=== PATIENT | female | born 1975 | race Two or more races ===

== ENCOUNTER 2018-03-31 08:24 | Emergency (ER) | payer BC ==
[2018-03-31] MEDS ORDERED: ACETAMINOPHEN 500 MG TAB PO ONE (08:49)
--- NOTE | 2018-03-31 08:52 | EDPHY ---
H & P Stated Complaint: L arm numbness and no movement for 30 seconds at 0550 today Time Seen by Provider: 03/31/18 08:27 HPI/ROS: CHIEF COMPLAINT: Left arm weakness History by patient HISTORY OF PRESENT ILLNESS: 42-year-old woman with a history of migraines presents complaining of acute onset of left arm weakness while folding laundry this morning. Patient states she was trying to lift something up and suddenly her left arm was limp. She was afraid and tried to scream but found she could not speak. The symptoms lasted less than a minute. She then began having we the jelly lines in her left eye which is her typical migraine aura. She denies any difficulty with her vision or double vision. She denies any leg weakness. She denies any nausea or vomiting. She went and laid down and did not develop a headache. She did not take anything. She was able to shower but got worried about a stroke and decided to come in to be seen. She normally takes ibuprofen for her migraines. She has been having migraines with aura since she was 17 years old but has never had any neurologic symptoms with them before. She does not smoke. 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 REVIEW OF SYSTEMS: As in HPI, and all other systems reviewed and are negative Source: Patient - Personal History LMP (Females 10-55): 1-7 Days Ago Current Tetanus Diphtheria and Acellular Pertussis (TDAP): Yes Tetanus Vaccine Date: within 10 years - Medical/Surgical History Hx Asthma: No Hx Chronic Respiratory Disease: No Hx Diabetes: No Hx Cardiac Disease: No Hx Renal Disease: No Hx Cirrhosis: No Hx Alcoholism: No Hx HIV/AIDS: No Hx Splenectomy or Spleen Trauma: No Other PMH: Migraines, uterine fibroids, high cholesterol - Social History Smoking Status: Never smoked - Physical Exam Exam: General Appearance: Alert, comfortable, well appearing, fluent speech. Head: normocephalic, atraumatic Eyes: Pupils equal and round, reactive to light, no pallor or injection. Extraocular movements intact. Mouth: Mucous membranes moist. Respiratory: Normal, effort, lungs are clear to auscultation. No wheezes, rales or rhonchi. Cardiovascular: Regular rate and rhythm. S1, S2, no murmurs, gallops or rubs appreciated Gastrointestinal: Abdomen is soft and nontender, no masses, bowel sounds normal. Back: No CVA tenderness, no bony tenderness Neurological: Awake, alert and oriented x 3, cranial nerves 2 through 12 intact , no pronator drift, normal gait, heel to hatch intact, [id number] intact, DTRs 2+ and equal bilaterally, sensation equal bilaterally Skin: Warm and dry, no rashes. Musculoskeletal: No deformities or tenderness. Extremities: full range of motion, no edema, DP2+ bilat Psychiatric: Patient has normal affect, there is no agitation. Constitutional: Initial Vital Signs Temperature (C) 36.7 C 03/31/18 08:28 Heart Rate 67 03/31/18 08:28 Respiratory Rate 16 03/31/18 08:28 Blood Pressure 141/89 H 03/31/18 08:28 O2 Sat (%) 96 03/31/18 08:28 O2 Delivery Mode Room Air Allergies/Adverse Reactions: hydrocortisone Allergy (Verified 03/31/18 08:30) Pt reports Swelling/neck,face,throat Penicillins Allergy (Verified 03/31/18 08:30) Pt reports Swelling/neck,face,throat Home Medications: Medication Instructions Recorded Bc Pill 03/31/18 Multivitamin 03/31/18 Medical Decision Making - Diagnostics EKG Interpretation: Normal sinus rhythm at a rate of 63 with normal axis, normal intervals and no ST segment abnormalities or arrhythmia. Impression: Unremarkable EKG. Imaging Results: Imaging Impressions Head CT 03/31/18 08:36 Impression: No acute intracranial findings. If symptoms persist and clinical suspicion warrants, consider MRI. Findings discussed with Lory Berry MD 03/31/2018 at 9:18. ED Course/Re-evaluation: 42-year-old woman with history of migraine headaches with aura presents with transient left arm weakness and difficulty speaking followed by migraine aura but without headache. Exam here is normal. ECG shows no evidence of arrhythmia. CBCs within normal limits. Electrolytes within normal limits except for low potassium however this is rechecked and found to be within normal limits. Head CT is read as nothing acute by the radiologist. Because the patient had left arm and speech affected this suggest both sides of her brain were involved in this is more likely to be migraine and then a TIA, in addition was accompanied by her typical aura.. There is no evidence of stroke as the patient's symptoms have all resolved. I discussed this with the patient and gave her reassurance. I am recommending close follow-up with her primary care physician and/or Neurology. - Data Points Laboratory Results: 03/31/18 03/31/18 09:34 08:51 POC Hgb 14.6 gm/dL gm/dL (12.6-16.3) POC Hct 43 % % (38-47) POC Sodium 143 mEq/L mEq/L 143 mEq/L mEq/L (135-145) (135-145) POC Potassium 3.6 mEq/L mEq/L 3.0 mEq/L L mEq/L (3.3-5.0) (3.3-5.0) POC Chloride 102 mEq/L mEq/L 103.0 mEq/L mEq/L (97-110) (97-110) POC Total CO2 26 mEq/L mEq/L (22-31) POC BUN 13 mg/dL mg/dL 12 mg/dL mg/dL (7-23) (7-23) POC Creatinine 0.7 mg/dL mg/dL 0.8 mg/dL mg/dL (0.6-1.0) (0.6-1.0) POC Glucose 83 mg/dL mg/dL 87 mg/dL mg/dL (70-100) (70-100) POC Calcium 9.0 mg/dL mg/dL (8.5-10.4) Medications Given: Discontinued Medications Acetaminophen (Tylenol) 1,000 mg PO EDNOW ONE Stop: 03/31/18 08:50 Last Admin: 03/31/18 08:56 Dose: 1,000 mg Point of Care Test Results: CBC CBC Collection Date 03/31/18 CBC Collection Time 08:40 WBC 6.0 RBC 4.40 HGB 14.0 HCT 40.1 PLT 258 Neut # 3.8 Neut 64.3 LYMPH # 1.7 LYMPH 27.5 Other WBC # 0.5 Other WBC 8.2 MCV 91.1 Chemistry 03/31/18 03/31/18 09:34 08:51 POC Sodium 143 mEq/L mEq/L 143 mEq/L mEq/L (135-145) (135-145) POC Potassium 3.6 mEq/L mEq/L 3.0 mEq/L L mEq/L (3.3-5.0) (3.3-5.0) POC Chloride 102 mEq/L mEq/L 103.0 mEq/L mEq/L (97-110) (97-110) POC Total CO2 26 mEq/L mEq/L (22-31) POC BUN 13 mg/dL mg/dL 12 mg/dL mg/dL (7-23) (7-23) POC Creatinine 0.7 mg/dL mg/dL 0.8 mg/dL mg/dL (0.6-1.0) (0.6-1.0) POC Glucose 83 mg/dL mg/dL 87 mg/dL mg/dL (70-100) (70-100) POC Calcium 9.0 mg/dL mg/dL (8.5-10.4) ISTAT H&H 03/31/18 09:34 POC Hgb 14.6 gm/dL gm/dL (12.6-16.3) POC Hct 43 % % (38-47) Basic Metabolic Panel BMP Collection Date 03/31/18 BMP Collection Time 08:40 Departure - Departure Disposition: Home, Routine, Self-Care Clinical Impression: Complicated migraine Condition: Good Instructions: Migraine Headache (ED) Additional Instructions: You were seen by Dr. Lory Berry today. You have had a complicated migraine. This is a migraine with aura and neurological symptoms like arm weakness and difficulty speaking. Your head CT today was normal. Please follow up with her primary care physician and/or neurologist for further evaluation. Return for any worsening or new concerns. Referrals: Hayley Carrion MD [Primary Care Provider] - As per Instructions
[2018-03-31 09:49] VITALS: BP 120/79
== END 2018-03-31 09:48 | disposition home or self-care (01) ==
LOC: CED 08:24
DX: G43.909 Migraine, unspecified, not intractable, without status migrainosus (principal); R53.1 Weakness; E78.00 Pure hypercholesterolemia, unspecified; D25.9 Leiomyoma of uterus, unspecified
CPT/HCPCS: 70450-PO; 80048-PO; 82435-PO; 82565-PO; 82947-PO; 84132-PO; 84295-PO; 84520-PO; 85014-PO